=== PATIENT | male | born 1955 | race Caucasian/White ===

== ENCOUNTER 2017-09-07 23:51 | Observation (INO) ==
--- NOTE | 2017-09-08 00:07 | Emergency Department Note ---
Disposition Clinical Impression: ACS (acute coronary syndrome) Chest pain Qualifiers: Chest pain type: unspecified Qualified Code(s): R07.9 - Chest pain, unspecified Disposition: Admitted As Inpatient Condition: Fair Time of Disposition: 03:12 Chest Pain HPI - General Chief Complaint: ED Chest Pain Stated Complaint: "Chest Pain" Time Seen by Provider: 09/07/17 23:54 Source: patient Mode of arrival: ambulatory Limitations: no limitations Vital Signs Reviewed: Yes Nursing Notes Reviewed: Yes - History of Present Illness HPI Narrative: 61-year-old male history of CAD status post stents 3, hypertension, hyperlipidemia, diabetes, COPD. presents with chest pain for last 6-8 hours today, he says his left chest, 12 3 out of 10 now going to his left arm, and his neck. Patient states so should with shortness of breath, does not quite feel like his last heart attack. Feels somewhat close patient states that he has had a come in for evaluation. He denies any recent fever chills or productive cough, denies history of DVT or PE, malignancy, recent travel, prolonged recumbency. Pt complaint: chest pain Onset (ago): hour(s) Duration: intermittent Pain Location: left chest Severity: moderate Severity scale (1-10): 4 Quality: aching Improves with: nothing Worsens with: nothing Associated symptoms: Reports: nausea, dyspnea Treatments prior to arrival chest pain: aspirin - Related Data Home Medications Medication Instructions Recorded Confirmed Aspirin Enteric Coated [Aspirin EC] 81 mg PO DAILY #0 12/06/14 01/25/17 Atorvastatin Calcium [Lipitor] 80 mg PO QPM #0 12/06/14 01/25/17 Clopidogrel [Plavix] 75 mg PO DAILY #0 12/06/14 01/25/17 Cyclobenzaprine [Flexeril] 10 mg PO TID #0 12/06/14 01/25/17 Ezetimibe [Zetia] 10 mg PO DAILY #0 12/06/14 01/25/17 Furosemide [Lasix] 20 mg PO DAILY #0 12/06/14 01/25/17 Glimepiride [Amaryl] 8 mg PO DAILY #0 12/06/14 01/25/17 Lisinopril [Zestril] 5 mg PO DAILY #0 12/06/14 01/25/17 Metoprolol [Lopressor] 75 mg PO BID #0 12/06/14 01/25/17 Omeprazole [PriLOSEC] 40 mg PO QPM #0 12/06/14 01/25/17 OxyCODONE/APAP 10325 [Percocet 2 each PO TID #0 12/06/14 01/25/17 10325] Pioglitazone [Actos] 45 mg PO QPM #0 12/06/14 01/25/17 Zolpidem Tartrate [Ambien Cr] 12.5 mg PO HS #0 12/06/14 01/25/17 metFORMIN [Glucophage] 1,000 mg PO BID #0 12/06/14 01/25/17 Albuterol Neb [Proventil Neb] 2.5 mg IH Q4HR PRN 10/15/15 01/25/17 Nitroglycerin [Nitrostat] 0.4 mg SL Q5M PRN 10/15/15 01/25/17 Tiotropium [Spiriva] 18 mcg IH 0700 10/15/15 01/25/17 Becaplermin [Regranex] 1 appl TP DAILY 04/27/16 04/27/16 Gabapentin [Neurontin] 300 mg PO TID 01/25/17 01/25/17 Meclizine [Antivert] 12.5 mg PO TID 01/25/17 01/25/17 Allergies Allergy/AdvReac Type Severity Reaction Status Date / Time bupropion [From Wellbutrin] Allergy See Verified 09/07/17 23:54 Comments meloxicam Allergy Rash Verified 09/07/17 23:54 acetaminophen [From Vicodin] AdvReac Nausea Verified 09/07/17 23:54 hydrocodone [From Vicodin] AdvReac Nausea Verified 09/07/17 23:54 sitagliptin [From Januvia] AdvReac Gastrointestinal Verified 09/07/17 23:54 Upset All systems ED: reviewed and negative except as stated. Review of Systems: As Per HPI Constitutional: Denies: fever, chills Eyes: Denies: eye pain ENT ED: Denies: ear pain Cardiovascular: Reports: as per HPI, chest pain Respiratory: Reports: as per HPI, cough, dyspnea Gastrointestinal: Denies: abdominal pain, nausea Genitourinary: Denies: urgency, dysuria Musculoskeletal: Denies: back pain Integumentary: Denies: rash Neurological: Denies: headache Chest Pain PMH - Past Medical History Medical history: Reports: COPD, diabetes, GERD, hyperlipidemia, hypertension, myocardial infarction, other Surgical history: Reports: angioplasty/stent, cholecystectomy, orthopedic, other , other Psychiatric history: Reports: depression Prior Cardiac Testing/Procedures: Stress Test, Stenting - Social History Smoking Status: Former smoker Alcohol use: Reports: none Drug use: Reports: none Physical Exam Constitutional: NAD, vital signs reviewed and wnl Eyes: PERRLA, sclera anicteric ENT & Mouth: MMM Neck: normal inspection, neck is supple Resp: CTA bilaterally, no resp distress CV: RRR, no m/g/r GI: normal inspection, soft, no guarding or rigidity Neuro: A&O3, CNII-XII grossly intact, [place] Skin: on limited exam, skin intact with no rashes or lesions Course Course Narrative: 61-year-old male with chest pain arrest, concerning given that he has previous stents, given a nitroglycerin trial, aspirin as he only took a baby aspirin today. Plan is for likely chest pain admission, CBC, BMP troponin,'s EKG was reviewed and showed no acute changes. - Reevaluation(s) Reevaluation #1: Besides the mild head hypotension, with nitroglycerin, chest pain is currently gone, he is admitted to hospitalist leave and a liter fluid for hypotenson. Hospitalist Dr Mendoza accepting Time: 03:12 Vital Signs Temperature 97.5 F L 09/07/17 23:52 Pulse Rate 96 09/07/17 23:52 Respiratory Rate 18 09/07/17 23:52 Blood Pressure 154/84 09/07/17 23:52 O2 Sat by Pulse Oximetry 99 09/07/17 23:52 Temperature 97.5 F L 09/08/17 00:06 Pulse Rate 105 09/08/17 01:53 Respiratory Rate 16 09/08/17 01:53 Blood Pressure 86/63 09/08/17 01:53 O2 Sat by Pulse Oximetry 99 09/08/17 01:53 Oxygen Delivery Oxygen Delivery Room Air Chest Pain - Differential Diagnosis Likely: fracture of rib, unstable angina pectoris, atypical chest pain, st elevation myocardial infraction, costalchondritis, chest pain - Medical Records Medical records reviewed: Yes I reviewed the patient's medical records. - Lab Data Lab results reviewed: Yes I reviewed the patient's lab results. Result diagrams: 09/08/17 00:16 09/08/17 00:16 Lab Results 09/08/17 09/08/17 Range/Units 00:16 00:16 WBC 7.8 (4.3-11.1) K/mcL RBC 4.91 (4.19-5.50) M/mcL Hgb 15.4 (12.9-16.9) g/dL Hct 46.9 (37.5-50.1) % MCV 95.5 (83.0-100.0) fL MCH 31.4 (28.0-33.3) pg MCHC 32.8 (31.6-35.5) g/dL RDW 14.1 (11.5-14.5) % Plt Count 170 (140-400) K/mcL MPV 11.4 (9.4-12.4) fL Immature Gran % 0.3 (0-4) % Seg Neutrophils % 70.8 % Lymphocytes % 17.7 % Monocytes % 6.8 % Eosinophils % 3.3 % Basophils % 1.1 % Neutrophils # 5.6 (1.6-8.9) K/mcL Lymphocytes # 1.4 (0.6-4.6) K/mcL Monocytes # 0.5 (0.0-1.3) K/mcL Eosinophils # 0.3 (0.0-0.6) K/mcL Basophils # 0.1 (0.0-0.2) K/mcL Sodium 136 (136-145) mEq/L Potassium 4.1 (3.5-5.1) mEq/L Chloride 100 (98-107) mEq/L Carbon Dioxide 25 (23-29) mEq/L BUN 22 (8-23) mg/dL Creatinine 0.95 (0.70-1.30) mg/dL Est GFR ( Amer) > 60 (> 60) Est GFR (Non-Af Amer) > 60 (> 60) BUN/Creatinine Ratio 23 (6-26) Glucose 220 H (70-105) mg/dL Calculated Osmolality 292 (280-300) Calcium 10.0 (8.6-10.3) mg/dL Troponin I < 0.03 (< 0.04) ng/mL - Radiology Data Radiology results reviewed: Yes I reviewed the patient's radiology results. Chest X-Ray 09/08/17 23:57 IMPRESSION: No acute process. D/ / Terry Pastrana MD / Terry Pastrana MD Interpreting Provider: Terry Pastrana MD - EKG Data EKG attestation: Yes I reviewed and interpreted this EKG. EKG shows normal: sinus rhythm Rate: normal Rhythm: NSR (98 bpm MS 143 QRS [address] segment elevations or depressions Q waves in leads 3, frequent SVC's), PVC's Heart Score - Score History: Moderately Suspicious EKG: Non Specific repolarisation Disturbance Age: 45-65 Risk Factors: Equal/Greater than 3 risk factor or history of atherosclerotic disease Troponin: Less than normal limit HEART Score Total: 5
[2017-09-08] MEDS ORDERED: Aspirin 81 MG TAB.CHEW PO STA (00:27)
--- NOTE | 2017-09-08 00:27 | Emergency Department Note ---
Disposition Clinical Impression: ACS (acute coronary syndrome) Disposition: Still a Patient Forms: ED Satisfaction Letter General Adult HPI - General Chief complaint: ED Chest Pain Stated complaint: "Chest Pain" Time Seen by Provider: 09/07/17 23:54 Source: patient Mode of arrival: ambulatory Limitations: no limitations - History of Present Illness Pain Scale: 4 - Related Data Home Medications Medication Instructions Recorded Confirmed Aspirin Enteric Coated [Aspirin EC] 81 mg PO DAILY #0 12/06/14 01/25/17 Atorvastatin Calcium [Lipitor] 80 mg PO QPM #0 12/06/14 01/25/17 Clopidogrel [Plavix] 75 mg PO DAILY #0 12/06/14 01/25/17 Cyclobenzaprine [Flexeril] 10 mg PO TID #0 12/06/14 01/25/17 Ezetimibe [Zetia] 10 mg PO DAILY #0 12/06/14 01/25/17 Furosemide [Lasix] 20 mg PO DAILY #0 12/06/14 01/25/17 Glimepiride [Amaryl] 8 mg PO DAILY #0 12/06/14 01/25/17 Lisinopril [Zestril] 5 mg PO DAILY #0 12/06/14 01/25/17 Metoprolol [Lopressor] 75 mg PO BID #0 12/06/14 01/25/17 Omeprazole [PriLOSEC] 40 mg PO QPM #0 12/06/14 01/25/17 OxyCODONE/APAP 10/325 [Percocet 2 each PO TID #0 12/06/14 01/25/17 10/325] Pioglitazone [Actos] 45 mg PO QPM #0 12/06/14 01/25/17 Zolpidem Tartrate [Ambien Cr] 12.5 mg PO HS #0 12/06/14 01/25/17 metFORMIN [Glucophage] 1,000 mg PO BID #0 12/06/14 01/25/17 Albuterol Neb [Proventil Neb] 2.5 mg IH Q4HR PRN 10/15/15 01/25/17 Nitroglycerin [Nitrostat] 0.4 mg SL Q5M PRN 10/15/15 01/25/17 Tiotropium [Spiriva] 18 mcg IH 0700 10/15/15 01/25/17 Becaplermin [Regranex] 1 appl TP DAILY 04/27/16 04/27/16 Gabapentin [Neurontin] 300 mg PO TID 01/25/17 01/25/17 Meclizine [Antivert] 12.5 mg PO TID 01/25/17 01/25/17 Allergies Allergy/AdvReac Type Severity Reaction Status Date / Time bupropion [From Wellbutrin] Allergy See Verified 09/07/17 23:54 Comments meloxicam Allergy Rash Verified 09/07/17 23:54 acetaminophen [From Vicodin] AdvReac Nausea Verified 09/07/17 23:54 hydrocodone [From Vicodin] AdvReac Nausea Verified 09/07/17 23:54 sitagliptin [From Januvia] AdvReac Gastrointestinal Verified 09/07/17 23:54 Upset Past Medical History - Past Medical History Medical history: Reports: COPD, diabetes, GERD, hyperlipidemia, hypertension, myocardial infarction, other Surgical history: Reports: angioplasty/stent, cholecystectomy, orthopedic, other , other Psychiatric history: Reports: depression - Social History Smoking Status: Former smoker Smokeless Tobacco Status: No Alcohol use: Reports: none Drug use: Reports: none Physical Exam - General Limitations: no limitations General appearance: alert Course - Reevaluation(s) Reevaluation #1: Attestation note I examined this patient and my medical decision-making was reviewed with the emergency medicine resident. I agree with the documented findings, disposition and treatment plan as described except to the extent set forth below. Patient seen with emergency medicine resident Lazaro Bateman, Please see a copy of his note for details of the H&P, ED evaluation, management and disposition. I have independently evaluated the patient and confirmed appropriate portions of the history and physical exam. Briefly: 61-year-old male presents with chest pain by EMS. Patient's history 3 prior stents. Heart scores 5. EKG nonspecific ST-T changes. Patient getting nitroglycerin. Patient right aspirin at home. Admission disposition pending. Provided 30 minutes of critical care service this patient Time: 00:25 Vital Signs Temperature 97.5 F L 09/07/17 23:52 Pulse Rate 96 09/07/17 23:52 Respiratory Rate 18 09/07/17 23:52 Blood Pressure 154/84 09/07/17 23:52 O2 Sat by Pulse Oximetry 99 09/07/17 23:52 Temperature 97.5 F L 09/08/17 00:06 Pulse Rate 96 09/08/17 00:06 Respiratory Rate 18 09/08/17 00:06 Blood Pressure 154/84 09/08/17 00:06 O2 Sat by Pulse Oximetry 99 09/08/17 00:06 Oxygen Delivery Oxygen Delivery Room Air
[2017-09-08] MEDS ORDERED: Nitroglycerin 0.4 MG TAB.SUBL SL ONE (00:29)
[2017-09-08 00:30] LABS: Basophils # 0.1 K/mcL (0.0-0.2); Basophils % 1.1 %; Eosinophils # 0.3 K/mcL (0.0-0.6); Eosinophils % 3.3 %; Hematocrit 46.9 % (37.5-50.1); Hemoglobin 15.4 g/dL (12.9-16.9); Immature Granulocytes % 0.3 % (0-4); Lymphocytes # 1.4 K/mcL (0.6-4.6); Lymphocytes % 17.7 %; Mean Corpuscular HGB Conc 32.8 g/dL (31.6-35.5); Mean Corpuscular Hemoglobin 31.4 pg (28.0-33.3); Mean Corpuscular Volume 95.5 fL (83.0-100.0); Mean Platelet Volume 11.4 fL (9.4-12.4); Monocytes # 0.5 K/mcL (0.0-1.3); Monocytes % 6.8 %; Neutrophils # 5.6 K/mcL (1.6-8.9); Platelet Count 170 K/mcL (140-400); Red Blood Count 4.91 M/mcL (4.19-5.50); Red Cell Distribution Width 14.1 % (11.5-14.5); Segmented Neutrophils % 70.8 %
[2017-09-08 00:48] LABS: BUN/Creatinine Ratio 23 (6-26); Blood Urea Nitrogen 22 mg/dL (8-23); Carbon Dioxide 25 mEq/L (23-29); Chloride 100 mEq/L (98-107); Glucose 220 mg/dL (70-105); Osmolality,Calculated 292 (280-300); Potassium 4.1 mEq/L (3.5-5.1); Sodium 136 mEq/L (136-145); eGFR For African Americans > 60 (> 60); eGFR For Non-African Americans > 60 (> 60)
[2017-09-08 00:49] LABS: Troponin I < 0.03 ng/mL (< 0.04)
[2017-09-08] MEDS ORDERED: 0.9 % Sodium Chloride 1,000 ML IVC ONE (01:55)
[2017-09-08] MEDS ORDERED: 0.9 % Sodium Chloride 1,000 ML ONE (01:56)
[2017-09-08] MEDS ORDERED: Naloxone 0.4 MG/ML INJ IVP PRN (04:46)
--- NOTE | 2017-09-08 04:46 | Internal Med History&Physical ---
<Daisy Harrison - Last Filed: 09/08/17 06:39> Date of Encounter: 09/08/17 Time of Encounter: 04:45 Internal Medicine - H&P: HPI Chief complaint: CP Admitted From: Home Plans for Post Hospital Care: Home History of present illness: Mr. Ledezma is a 61 year old male pmh of CAD status post stents 4-5, hypertension, hyperlipidemia, diabetes, and COPD who presented for chest pain. Chest pain described as heaviness being on the left side of his chest and is radiating to his left arm and neck. Pain did not change with position or breathing. Admits to associated diaphoresis but no nausea and shortness of breath. Patient states that this afternoon around 3:57 PM he woke up with chest pain but thought it was a portable muscle, back to sleep. Patient went to work and chest pain continued to worsen as time progressed. He did not notice it being worse with exertion though. Patient taken baby aspirin before coming to the ED. Upon arrival to the ED, patient was tachycardic. Labs showed a negative troponin. EKG shows normal sinus rhythm with a HR 98, no ST changes. Chest x- ray showed no acute process. Patient is given aspirin, nitroglycerin and 1 L bolus. Patient's chest pain was not alleviated by nitroglycerin. Last cardiology visit was years ago with Dominguez Farnsworth. Cardiac work-up: Last echo 11/2014: EF 60, hypokinesis of the basal inferior wall, moderate left ventricular diastolic dysfunction. LHC from 08/29/12 showed 100% occluded proximal RCA with L-R collaterals. There was 25% mid-LAD stenosis and 20% mid-LCx stenosis. Prior stents in the LCx were patent. Past Med Surg Social Fam HX - Past Medical History Medical history: COPD, diabetes, GERD, hyperlipidemia, hypertension, myocardial infarction, other Additional medical history: cardiac catheterization with stents, Psychiatric history: depression - Past Surgical History Surgical History: angioplasty/stent, cholecystectomy, orthopedic, other, other Additional surgical history: colonscopy,rt ankle - Social History Smoking Status: Former smoker Smokeless Tobacco Status: No Alcohol use: none Drug use: none - Family History Father Living Status: Hx Family Cancer: Yes Mother Adopted: No Family Member Ethnicity: Non- Living Status: Still Living Hx Family Cardiac Disorders: Yes Hx Family Respiratory Disorders: No Hx Family Cancer: No Hx Family GI Disorders: No Hx Family Endocrine Disorder: Yes (DM) Hx Family Neuromuscular Disorders: No Hx Family Neurologic Disorders: No Hx Family HEENT Disorders: No Hx Family Autoimmune Disorders: No Internal Medicine - H&P: Meds Aspirin Enteric Coated [Aspirin EC] 81 mg PO DAILY #0 12/06/14 [History] Atorvastatin Calcium [Lipitor] 80 mg PO QPM #0 12/06/14 [History] Clopidogrel [Plavix] 75 mg PO DAILY #0 12/06/14 [History] Cyclobenzaprine [Flexeril] 10 mg PO TID PRN #0 12/06/14 [History] Ezetimibe [Zetia] 10 mg PO DAILY #0 12/06/14 [History] Furosemide [Lasix] 20 mg PO DAILY #0 12/06/14 [History] Glimepiride [Amaryl] 8 mg PO DAILY #0 12/06/14 [History] Lisinopril [Zestril] 5 mg PO DAILY #0 12/06/14 [History] Metoprolol [Lopressor] 75 mg PO BID #0 12/06/14 [History] Omeprazole [PriLOSEC] 40 mg PO QAM #0 12/06/14 [History] Pioglitazone [Actos] 45 mg PO QPM #0 12/06/14 [History] Zolpidem Tartrate [Ambien Cr] 12.5 mg PO HS #0 12/06/14 [History] metFORMIN [Glucophage] 1,000 mg PO BID #0 12/06/14 [History] Nitroglycerin [Nitrostat] 0.4 mg SL Q5M PRN 10/15/15 [History] Gabapentin [Neurontin] 300 mg PO TID 01/25/17 [History] Meclizine [Antivert] 12.5 mg PO TID PRN 01/25/17 [History] 3 Allergy/AdvReac Type Severity Reaction Status Date / Time bupropion [From Wellbutrin] Allergy See Verified 09/07/17 23:54 Comments meloxicam Allergy Rash Verified 09/07/17 23:54 acetaminophen [From Vicodin] AdvReac Nausea Verified 09/07/17 23:54 hydrocodone [From Vicodin] AdvReac Nausea Verified 09/07/17 23:54 sitagliptin [From Januvia] AdvReac Gastrointestinal Verified 09/07/17 23:54 Upset All Systems PM: A 10-system review of systems was performed and is negative for pertinent findings except as documented above in the HPI. - Constitutional Vitals: Temp Pulse Resp BP Pulse Ox 97.6 F 49 15 134/83 98 09/08/17 04:15 09/08/17 04:15 09/08/17 04:15 09/08/17 04:15 09/08/17 04:15 Exam: Constitutional: Alert, in no acute distress , obese Head: Normocephalic, atraumatic Heart: Normal, regular rate and rhythm, no murmurs Lungs: Clear to auscultation, no wheezes, rales, or rhonchi Abdomen: Soft, nondistended, nontender, bowel sounds present and normal, no guarding or rigidity. Extremities: No edema, No clubbing, radial pulse +2/4, capillary refill <2sec. Skin: multiple hypomelanotic lesions on arms and back of neck/upper back, Skin warm and dry, no jaundice, Neurologic: Cranial nerves II through XII grossly intact, Psych: Cooperative with exam, good eye contact, cognitive function intact, speech clear, thought process logical, and goal directed Internal Med - H&P Results - Labs CBC & Chem 7: 09/08/17 00:16 09/08/17 00:16 - Impressions ITS Impressions Chest X-Ray 09/08/17 23:57 IMPRESSION: No acute process. D/ / Terry Pastrana MD / Terry Pastrana MD Interpreting Provider: Terry Pastrana MD - Assessment and plan (1) Chest pain Current Visit: Yes Status: Acute Assessment and plan: Typical chest pain. No changes on EKG. Tropnin negative initially. Most recent echo 2014. Plan: - continue BB, ASA, Plavix, and Statin - trend troponins x3 - Echo pending - cardiac monitoring Qualifiers: Chest pain type: unspecified Qualified Code(s): R07.9 - Chest pain, unspecified (2) Diabetes mellitus type 2 in obese Current Visit: No Status: Chronic Assessment and plan: Not insulin dependent. Will hold diabetic medications and place on low sliding scale. (3) CAD (coronary artery disease) Current Visit: No Status: Chronic Assessment and plan: Continue home meds. Qualifiers: [place] vs. transplanted heart: [place] heart Associated angina: with unstable angina Qualified Code(s): I25.110 - Atherosclerotic heart disease of [place] coronary artery with unstable angina pectoris (4) DVT prophylaxis Current Visit: Yes Status: Acute Assessment and plan: Heparin SQ - Time Spent With Patient Total time spent is greater than 50% in coordination of care (as documented) at patient's floor/unit and/or counseling patient: <Marizol Abbasi O - Last Filed: 09/08/17 07:33> Date of Encounter: 09/08/17 Internal Medicine - H&P: HPI History of present illness: Mr. Ledezma is a 61 year old male All Systems PM: A 10-system review of systems was performed and is negative for pertinent findings except as documented above in the HPI. - Constitutional Vitals: Temp Pulse Resp BP Pulse Ox 97.6 F 49 15 134/83 98 09/08/17 04:15 09/08/17 04:15 09/08/17 04:15 09/08/17 04:15 09/08/17 04:15 General appearance: Present: A&O X 3, no acute distress - Head Head exam: Present: atraumatic, normocephalic - Eye Eye exam: Present: PERRL, conjuntiva pink, sclera anicteric Pupils: Present: PERRL - Neck Neck exam general surgery: Present: supple, trachea midline. Absent: lymphadenopathy - Respiratory Respiratory exam: Present: CTAB. Absent: accessory muscle use, rales, rhonchi, wheezes - Cardiovascular Cardiovascular exam: Present: RRR, +S1, +S2. Absent: diastolic murmur, gallop, rubs, systolic murmur - GI/Abdominal GI/Abdominal exam: Present: normal bowel sounds, soft, no peritoneal signs. Absent: distended, tenderness - Extremities Exam Extremities exam: Present: warm, radial pulses palpable and symmetrical. Absent : calf tenderness, cyanotic, pedal edema - Neurological Exam Neurological exam: Present: CN II-XII intact, oriented X3, no focal deficits. Absent: pronater drift, facial droop, speech deficit - Skin Skin exam: Present: dry, intact Internal Med - H&P Results - Labs CBC & Chem 7: 09/08/17 00:16 09/08/17 00:16 Labs: Cardiac Enzymes 09/08/17 Range/Units 06:05 Troponin I < 0.03 (< 0.04) ng/mL - Impressions ITS Impressions Chest X-Ray 09/08/17 23:57 IMPRESSION: No acute process. D/ / Terry Pastrana MD / Terry Pastrana MD Interpreting Provider: Terry Pastrana MD - Attending Attestation I performed a history and physical exam of the patient and discussed his management with the resident. I reviewed the residents note and agree with the documented findings and plan of care. Assessment and plan !. Chest pain. Will cycle troponin. ASA daily and nitro SL prn. Oxygen as needed. If troponin trends up will consult cardiology. - Time Spent With Patient Total time spent is greater than 50% in coordination of care (as documented) at patient's floor/unit and/or counseling patient: 25 - 35 minutes
[2017-09-08] MEDS ORDERED: D5% in Water 1,000 ML IVC PRN (04:54)
[2017-09-08] MEDS ORDERED: Dextrose Gel 15 GM/37.5 ML TUBE PO PRN ×2 (04:54)
[2017-09-08] MEDS ORDERED: *HR* Dextrose 50 % in Water (Syg) 50 ML SYRINGE IVP PRN (04:54)
[2017-09-08] MEDS ORDERED: *HR* Heparin 5,000 UNIT/ML VIAL SQ SCH (06:00)
[2017-09-08 06:56] LABS: Magnesium 1.8 mg/dL (1.6-2.6)
[2017-09-08 06:58] LABS: Troponin I < 0.03 ng/mL (< 0.04)
[2017-09-08] MEDS: Insulin LISPRO 300 UNITS/3 ML VIAL SQ SCH ×2 (07:56→12:19)
[2017-09-08] MEDS ORDERED: Furosemide 20 MG TABLET PO SCH (09:00)
[2017-09-08] MEDS ORDERED: (Ezetimibe [Zetia] 10 MG) PO SCH (09:00)
[2017-09-08] MEDS ORDERED: Aspirin Enteric Coated 81 MG Tablet PO SCH (09:00)
[2017-09-08] MEDS: Gabapentin 300 MG CAPSULE PO SCH ×2 (09:26→14:57)
[2017-09-08 11:16] VITALS: BP 128/81
--- NOTE | 2017-09-08 14:56 | Discharge Summary ---
Orders not resulted at time of discharge: Pending orders 09/08/17 18:00 Troponin I Q6H 09/09/17 04:00 Basic Metabolic Panel AM 0400 Magnesium AM 0400 Date of Encounter: 09/08/17 Time of Encounter: 14:59 - Discharge Diagnosis (1) Chest pain Priority: Primary Status: Acute Qualifiers: Chest pain type: unspecified Qualified Code(s): R07.9 - Chest pain, unspecified (2) CAD (coronary artery disease) Priority: Primary Status: Chronic Qualifiers: [place] vs. transplanted heart: [place] heart Associated angina: with unstable angina Qualified Code(s): I25.110 - Atherosclerotic heart disease of [place] coronary artery with unstable angina pectoris (3) Diabetes mellitus type 2 in obese Priority: Secondary Status: Chronic Hospital course: Mr. Ledezma is a 61 year old male with [facility] CAD status post stents 4-5, hypertension, hyperlipidemia, diabetes, and COPD who presented to [facility] on 2017 with complaints of chest pain. He is placed in observation status for further workup and treatment. ACS was ruled out with negative serial troponins , EKG without acute ST changes. CXR nonacute. He was given ASA, sublingual nitroglycerin in the ED with improvement in chest pain. Discussed inpatient cardiology consultation versus medication management and patient preferred medical management at this time. Agreeable to trial isosorbide with outpatient follow-up with primary athletic field custodian. Denied chest pain, no shortness of breath at time of discharge. He was advised to continue all cardiac medications with the addition of isosorbide and return to ER if chest pain or SOB recurs. He verbalizes understanding. Otherwise he will follow-up with outpatient athletic field custodian Discharge discussed with: patient (Seen and examined at bedside. Patient is new to me, information obtained from chart review and patient report. Sitting up in chair at bedside. Says he feels back to baseline and would like to discharge home today if possible. No further chest pain or shortness of breath. Discussed inpatient cardiology consultation with him and he prefers medical management at this time. He was advised return to ER if chest pain or SOB recurs. Verbalized understanding.) - Time Spent with Patient Total time spent providing and/or coordinating discharge services: - Discharge Medications Prescriptions: Isosorbide MONOnitrate (24 HR) [Imdur] 30 mg PO DAILY #30 tab.er.24h Home Medications: Aspirin Enteric Coated [Aspirin EC] 81 mg PO DAILY #0 12/06/14 [History] Atorvastatin Calcium [Lipitor] 80 mg PO QPM #0 12/06/14 [History] Ezetimibe [Zetia] 10 mg PO DAILY #0 12/06/14 [History] Furosemide [Lasix] 20 mg PO DAILY #0 12/06/14 [History] Lisinopril [Zestril] 5 mg PO DAILY #0 12/06/14 [History] Metoprolol [Lopressor] 75 mg PO BID #0 12/06/14 [History] Omeprazole [PriLOSEC] 40 mg PO QAM #0 12/06/14 [History] Zolpidem Tartrate [Ambien Cr] 12.5 mg PO HS #0 12/06/14 [History] metFORMIN [Glucophage] 1,000 mg PO BID #0 12/06/14 [History] Nitroglycerin [Nitrostat] 0.4 mg SL Q5M PRN 10/15/15 [History] Gabapentin [Neurontin] 300 mg PO TID 01/25/17 [History] Meclizine [Antivert] 12.5 mg PO TID PRN 01/25/17 [History] Alendronate Sodium [Fosamax] 70 mg PO QWEEK 09/08/17 [History] Clopidogrel [Plavix] 75 mg PO DAILY 09/08/17 [History] Glimepiride [Amaryl] 8 mg PO DAILY 09/08/17 [History] Isosorbide MONOnitrate (24 HR) [Imdur] 30 mg PO DAILY #30 tab.er.24h 09/08/17 [ Rx] Pioglitazone HCl [Actos] 45 mg PO DAILY 09/08/17 [History] Allergies/Adverse Reactions: 3 Allergy/AdvReac Type Severity Reaction Status Date / Time bupropion [From Wellbutrin] Allergy See Verified 09/07/17 23:54 Comments meloxicam Allergy Rash Verified 09/07/17 23:54 acetaminophen [From Vicodin] AdvReac Nausea Verified 09/07/17 23:54 hydrocodone [From Vicodin] AdvReac Nausea Verified 09/07/17 23:54 sitagliptin [From Januvia] AdvReac Gastrointestinal Verified 06/14/18 23:54 Upset Date of admission: 09/08/17 02:11 Primary care physician: Nicole Amaya CNP Discharging clinician: Alyson Levin Anticipated date of discharge: 09/08/17 - Constitutional Vitals: Temp Pulse Resp BP Pulse Ox 97.4 F L 80 16 128/81 94 09/08/17 11:14 09/08/17 11:14 09/08/17 11:14 09/08/17 11:14 09/08/17 11:14 General appearance: Present: A&O X 3, no acute distress - Head Head exam: Present: atraumatic, normocephalic - Eye Eye exam: Present: PERRL, conjuntiva pink, sclera anicteric Pupils: Present: PERRL - Neck Neck exam general surgery: Present: supple, trachea midline. Absent: lymphadenopathy - Respiratory Respiratory exam: Present: CTAB. Absent: accessory muscle use, rales, rhonchi, wheezes - Cardiovascular Cardiovascular exam: Present: RRR, +S1, +S2. Absent: diastolic murmur, gallop, rubs, systolic murmur - GI/Abdominal GI/Abdominal exam: Present: normal bowel sounds, soft, no peritoneal signs. Absent: distended, tenderness - Extremities Exam Extremities exam: Present: warm, radial pulses palpable and symmetrical. Absent : calf tenderness, cyanotic, pedal edema - Neurological Exam Neurological exam: Present: CN II-XII intact, oriented X3, no focal deficits. Absent: pronater drift, facial droop, speech deficit - Skin Skin exam: Present: dry, intact - Patient Status Disposition: Home, Self-Care Condition: Good Functional capacity at discharge: independent ambulation Overall status at discharge: patient is back to baseline - Discharge Instructions Instructions: Isosorbide Mononitrate (By mouth), Chest Pain (DC) Follow Up With: Nicole Amaya CNP [Primary Care Provider] - 09/12/17 10:30 am Phong Farnsworth CNP [Advanced Practice Nurse] - (Please call for follow-up appointment if you have not heard from office within 2-3 weeks) - Diet and Activity Activity: increase activity as tolerated Diet: diabetic diet, low fat, low cholesterol, low salt diet
[2017-09-08] MEDS ORDERED: Insulin LISPRO 300 UNITS/3 ML VIAL SQ SCH (21:00)
--- NOTE | 2017-09-11 06:44 | Electrocardiograph Report ---
[address] [address] Test Date: 2017-09-07 Pat Name: Nathan Ledezma Department: 103 Room: 3B54 Gender: M Nursing Service Director: HAILEY : 1955 Requested By: Lazaro Bateman Order Number: [id number] Reading MD: Ranjith Leggett Measurements Intervals [place] Rate: 98 P: 35 DC: 143 QRS: 39 QRSD: 80 T: 18 QT: 330 QTc: 386 Interpretive Statements SINUS RHYTHM WITH FREQUENT SUPRAVENTRICULAR PREMATURE COMPLEXES BASELINE ARTIFACT Electronically Signed On 09-11-2017 6:43:03 EDT by Ranjith Leggett
== END 2017-09-08 15:49 | disposition home or self-care (01) ==
LOC: 3BNU 23:51 → EMEROO 23:51 → 3BNU 09-08 03:23
PROVIDERS: ADMIT Internal Medicine; ATTEND Internal Medicine

== ENCOUNTER 2019-01-20 14:33 | Observation (INO) ==
[2019-01-20] MEDS ORDERED: Aspirin 81 MG TAB.CHEW PO ONE (14:46)
[2019-01-20] MEDS: Nitroglycerin 0.4 MG TAB.SUBL SL PRN ×3 (14:59→15:25)
[2019-01-20 15:21] LABS: Basophils # 0.1 K/mcL (0.0-0.2); Basophils % 1.7 %; Eosinophils # 0.4 K/mcL (0.0-0.6); Eosinophils % 4.5 %; Hematocrit 47.8 % (37.5-50.1); Hemoglobin 15.7 g/dL (12.9-16.9); Immature Granulocytes % 0.2 % (0-4); Lymphocytes # 1.6 K/mcL (0.6-4.6); Lymphocytes % 19.1 %; Mean Corpuscular HGB Conc 32.8 g/dL (31.6-35.5); Mean Corpuscular Hemoglobin 30.8 pg (28.0-33.3); Mean Corpuscular Volume 93.7 fL (83.0-100.0); Monocytes # 0.6 K/mcL (0.0-1.3); Monocytes % 7.7 %; Neutrophils # 5.5 K/mcL (1.6-8.9); Platelet Count 237 K/mcL (140-400); Red Cell Distribution Width 14.5 % (11.5-14.5); Segmented Neutrophils % 66.8 %; White Blood Count 8.3 K/mcL (4.3-11.1)
[2019-01-20 15:28] LABS: Prothrombin Time 11.4 Seconds (9.4-12.1)
[2019-01-20 15:31] LABS: Activated Partial Thrombo Time 38.6 Seconds (26.0-36.0)
[2019-01-20 15:45] LABS: BUN/Creatinine Ratio 17 (6-26); Blood Urea Nitrogen 16 mg/dL (8-23); Calcium 9.9 mg/dL (8.6-10.3); Carbon Dioxide 28 mEq/L (23-29); Chloride 95 mEq/L (98-107); Glucose 264 mg/dL (70-105); Osmolality,Calculated 290 (280-300); Potassium 4.5 mEq/L (3.5-5.1); Sodium 135 mEq/L (136-145); eGFR For African Americans > 60 (> 60); eGFR For Non-African Americans > 60 (> 60)
[2019-01-20 15:46] LABS: Troponin I < 0.03 ng/mL (< 0.04)
[2019-01-20] MEDS ORDERED: Naloxone 0.4 MG/ML INJ IVP PRN (17:00)
[2019-01-20] MEDS ORDERED: *HR* Dextrose 50 % in Water (Syg) 50 ML SYRINGE IVP PRN (17:30)
[2019-01-20] MEDS ORDERED: D5% in Water 1,000 ML IVC PRN (17:30)
[2019-01-20] MEDS ORDERED: Dextrose Gel 15 GM/37.5 ML TUBE PO PRN ×2 (17:30)
[2019-01-20] MEDS ORDERED: Melatonin 3 MG TABLET PO PRN (23:45)
[2019-01-21] MEDS ORDERED: Regadenoson 0.4 MG/5 ML SYRINGE IVP ONE (06:28)
[2019-01-21] MEDS ORDERED: Furosemide 20 MG TABLET PO SCH (09:00)
[2019-01-21] MEDS: Insulin LISPRO 300 UNITS/3 ML VIAL SQ SCH ×2 (09:27→11:29)
[2019-01-21 11:27] VITALS: BP 101/64
[2019-01-22] MEDS ORDERED: Isosorbide MONOnitrate (24 HR) 30 MG TAB.ER.24H PO SCH (09:00)
== END 2019-01-21 14:10 | disposition home or self-care (01) ==
LOC: SUATTDRO → 3BNU 14:33 → EMEROOARM 14:33 → SUATTDRO 17:11 → 3BNU 17:42
PROVIDERS: ADMIT Student in an Organized Health Care Education/Training Program; ATTEND Internal Medicine

== ENCOUNTER 2020-01-01 12:14 | Inpatient (IN) ==
[~2020-01-01 12:14] MED LIST: Povidone-Iodine 45 ML, Sodium Chloride IRRigation 1,000 ML IR ONE
[2020-01-01] MEDS ORDERED: CeFAZolin Syr 2,000MG/20 ML 2,000 MG/20 ML SYRINGE IVPB ONE (12:43)
[2020-01-01] MEDS ORDERED: Ringers Solution, Lactated 1,000 ML IVC SCH ×2 (12:45→16:14)
[2020-01-01] MEDS ORDERED: *HR* Metoprolol 5 MG/5 ML VIAL IVP PRN (13:06)
[2020-01-01] MEDS ORDERED: *HR* Promethazine 25 MG/ML VIAL IVP PRN (13:06)
[2020-01-01] MEDS ORDERED: *HR* OxyCODONE Immed Rel 5 MG TABLET PO PRN ×2 (13:06→16:14)
[2020-01-01] MEDS ORDERED: Acetaminophen IV 1,000 MG/100 ML INFUS..BTL IVPB ONE (13:06)
[2020-01-01] MEDS ORDERED: Ondansetron 4 MG/2 ML VIAL IVP PRN ×2 (13:06→16:14)
[2020-01-01] MEDS ORDERED: Famotidine 20 MG/2 ML VIAL IVP ONE (13:06)
[2020-01-01] MEDS ORDERED: *HR* HYDROmorphone PF 0.5 MG/0.5 ML SYRINGE IVP PRN (13:06)
[2020-01-01] MEDS ORDERED: Ethanol\\Acetic Acid\\Na Ace\\Ben 1,000 ML IRRIG.SOLN IR ONE (13:11)
[2020-01-01] MEDS ORDERED: Vancomycin 1,000 MG VIAL ONE (13:12)
[2020-01-01] MEDS ORDERED: Ropivacaine/PF 0.5% 30 ML VIAL ONE (13:32)
[2020-01-01] MEDS ORDERED: *HR* Midazolam HCl 2 MG/2 ML VIAL ONE (13:32)
[2020-01-01] MEDS ORDERED: *HR* Propofol 200 MG/20 ML VIAL IVP ONE (13:34)
[2020-01-01] MEDS ORDERED: Lidocaine -MPF 2% 2 ML VIAL ONE (13:36)
[2020-01-01] MEDS ORDERED: Dexamethasone 4 MG/ML VIAL ONE (13:36)
[2020-01-01] MEDS ORDERED: Lidocaine HCL 4 ML Topical Solution (Laryng-O-Jet Kit Sterile Pak) TP ONE (13:36)
[2020-01-01] MEDS ORDERED: Ondansetron 4 MG/2 ML VIAL ONE (13:36)
[2020-01-01] MEDS ORDERED: *HR* Succinylcholine 200 MG/10 ML VIAL IVP ONE (13:36)
[2020-01-01] MEDS ORDERED: *HR* FentaNYL (PF) 100 MCG/2 ML VIAL ONE (14:46)
[2020-01-01] MEDS ORDERED: Dextrose Gel 15 GM/37.5 ML TUBE PO PRN ×2 (16:14)
[2020-01-01] MEDS ORDERED: *HR* OxyCODONE/APAP 5/325 TABLET PO PRN (16:14)
[2020-01-01] MEDS ORDERED: D5% in Water 1,000 ML IVC PRN (16:14)
[2020-01-01] MEDS ORDERED: Naloxone 0.4 MG/ML INJ IVP PRN (16:14)
[2020-01-01] MEDS ORDERED: *HR* Dextrose 50 % in Water (Vial) 50 ML VIAL IVP PRN (16:14)
[2020-01-01] MEDS ORDERED: Sennosides 8.6 MG TABLET PO PRN (16:14)
[2020-01-01] MEDS ORDERED: MOM Conc 10 ML UD.LIQ PO PRN (16:14)
[2020-01-01] MEDS ORDERED: Insulin LISPRO 300 UNITS/3 ML VIAL SQ SCH ×2 (16:30→21:00)
[2020-01-01 16:31] LABS: Hematocrit 42.1 % (37.5-50.1); Hemoglobin 13.5 g/dL (12.9-16.9)
[2020-01-01] MEDS ORDERED: CeFAZolin 2 GM/120 ML BAG IVPB SCH ×2 (17:10→22:00)
[2020-01-01] MEDS ORDERED: *HR* Enoxaparin 30 MG/0.3 ML SYRINGE SQ SCH ×2 (18:00)
[2020-01-01 18:43] VITALS: BP 136/74
[2020-01-02] MEDS ORDERED: Furosemide 20 MG TABLET PO SCH (09:00)
[2020-01-02] MEDS ORDERED: Dapagliflozin Propanediol [Farxiga] 5 MG PO SCH (09:00)
[2020-01-02] MEDS ORDERED: NON-FORMULARY MEDICATION 1 EACH EACH (Ezetimibe [Zetia] 10 MG) PO SCH (09:00)
[2020-01-06] MEDS ORDERED: Dulaglutide [Trulicity] 0.75 MG SQ SCH (13:10)
== END 2020-01-01 20:10 | disposition home or self-care (01) | DRG 483 ==
LOC: SAMDAY 12:14 → 3NENU 15:59
PROVIDERS: ADMIT Orthopaedic Surgery; ATTEND Orthopaedic Surgery

== ENCOUNTER 2020-07-16 16:05 | Observation (INO) ==
[2020-07-16] MEDS ORDERED: Nitroglycerin 0.4 MG TAB.SUBL SL PRN (16:58)
[2020-07-16] MEDS ORDERED: Aspirin 325 MG TABLET PO ONE (16:58)
[2020-07-16 17:00] LABS: White Blood Count 7.1 K/mcL (4.3-11.1)
[2020-07-16 17:01] LABS: Basophils # 0.1 K/mcL (0.0-0.2); Basophils % 1.7 %; Eosinophils # 0.4 K/mcL (0.0-0.6); Eosinophils % 5.2 %; Hematocrit 42.4 % (37.5-50.1); Hemoglobin 13.4 g/dL (12.9-16.9); Immature Granulocytes % 0.3 % (0-4); Lymphocytes # 1.4 K/mcL (0.6-4.6); Lymphocytes % 19.7 %; Mean Corpuscular HGB Conc 31.6 g/dL (31.6-35.5); Mean Corpuscular Hemoglobin 29.7 pg (28.0-33.3); Mean Platelet Volume 10.2 fL (9.4-12.4); Monocytes # 0.5 K/mcL (0.0-1.3); Monocytes % 7.1 %; Neutrophils # 4.7 K/mcL (1.6-8.9); Platelet Count 213 K/mcL (140-400); Red Blood Count 4.51 M/mcL (4.19-5.50); Red Cell Distribution Width 15.5 % (11.5-14.5)
[2020-07-16 17:26] LABS: BUN/Creatinine Ratio 19 (6-26); Blood Urea Nitrogen 18 mg/dL (8-23); Calcium 9.8 mg/dL (8.6-10.3); Carbon Dioxide 23 mEq/L (23-29); Chloride 101 mEq/L (98-107); Glucose 237 mg/dL (70-105); Osmolality,Calculated 290 (280-300); Potassium 4.1 mEq/L (3.5-5.1); Sodium 135 mEq/L (136-145); eGFR For African Americans > 60 (> 60); eGFR For Non-African Americans > 60 (> 60)
[2020-07-16 17:28] LABS: Troponin I < 0.03 ng/mL (< 0.04)
[2020-07-16] MEDS ORDERED: Ondansetron 4 MG/2 ML VIAL IVP PRN (17:58)
[2020-07-16] MEDS ORDERED: Morphine Sulfate 2 MG/ML SYRINGE IVP PRN (17:58)
[2020-07-16] MEDS ORDERED: *HR* Dextrose 50 % in Water (Vial) 50 ML VIAL IVP PRN (18:01)
[2020-07-16] MEDS ORDERED: D5% in Water 1,000 ML IVC PRN (18:01)
[2020-07-16] MEDS ORDERED: Dextrose Gel 15 GM/37.5 ML TUBE PO PRN ×2 (18:01)
[2020-07-16] MEDS ORDERED: Insulin LISPRO 300 UNITS/3 ML VIAL SUBQ SCH (21:00)
[2020-07-17] MEDS ORDERED: Regadenoson 0.4 MG/5 ML SYRINGE IVP ONE (06:19)
[2020-07-17 07:05] LABS: Basophils # 0.1 K/mcL (0.0-0.2); Basophils % 0.8 %; Eosinophils # 0.4 K/mcL (0.0-0.6); Eosinophils % 5.2 %; Hematocrit 44.9 % (37.5-50.1); Hemoglobin 14.3 g/dL (12.9-16.9); Immature Granulocytes % 0.3 % (0-4); Lymphocytes # 1.3 K/mcL (0.6-4.6); Lymphocytes % 18.4 %; Mean Corpuscular HGB Conc 31.8 g/dL (31.6-35.5); Mean Corpuscular Hemoglobin 30.4 pg (28.0-33.3); Mean Corpuscular Volume 95.5 fL (83.0-100.0); Mean Platelet Volume 10.3 fL (9.4-12.4); Monocytes # 0.5 K/mcL (0.0-1.3); Monocytes % 6.9 %; Platelet Count 181 K/mcL (140-400); Red Cell Distribution Width 15.4 % (11.5-14.5); Segmented Neutrophils % 68.4 %; White Blood Count 7.3 K/mcL (4.3-11.1)
[2020-07-17 07:31] LABS: Alanine Aminotransferase 26 Units/L (7-52); Albumin 4.2 g/dL (3.5-5.7); Albumin/Globulin Ratio 1.4 (1.1-2.2); Alkaline Phosphatase 63 Units/L (34-104); Aspartate Amino Transferase 22 Units/L (13-39); BUN/Creatinine Ratio 20 (6-26); Bilirubin,Total 0.5 mg/dL (0.3-1.0); Blood Urea Nitrogen 15 mg/dL (8-23); Calcium 9.8 mg/dL (8.6-10.3); Carbon Dioxide 26 mEq/L (23-29); Chloride 103 mEq/L (98-107); Globulin 3.1 g/dL (2.4-3.5); Glucose 80 mg/dL (70-105); Magnesium 1.9 mg/dL (1.6-2.6); Osmolality,Calculated 288 (280-300); Sodium 139 mEq/L (136-145); Total Protein 7.3 g/dL (6.4-8.9); Troponin I < 0.03 ng/mL (< 0.04); eGFR For African Americans > 60 (> 60); eGFR For Non-African Americans > 60 (> 60)
[2020-07-17 08:30] LABS: Prothrombin Time 11.8 Seconds (9.4-12.1)
[2020-07-17] MEDS: Insulin LISPRO 300 UNITS/3 ML VIAL SUBQ SCH ×2 (08:31→10:50)
[2020-07-17] MEDS ORDERED: *HR* OxyCODONE/APAP 7.5/325 TABLET PO PRN (08:50)
[2020-07-17] MEDS ORDERED: Furosemide 20 MG TABLET PO SCH (09:00)
[2020-07-17] MEDS ORDERED: Metoprolol XL (24 HR) Succ 50 MG TAB.ER.24H PO SCH (09:00)
[2020-07-17] MEDS ORDERED: (Ezetimibe [Zetia] 10 MG Tablet) PO SCH (09:00)
[2020-07-17] MEDS ORDERED: lisinopriL 5 MG TABLET PO SCH (09:00)
[2020-07-17 09:15] VITALS: TEMP 97.4
[2020-07-17 11:15] VITALS: O2SAT 92
[2020-07-17] MEDS ORDERED: Isosorbide MONOnitrate (24 HR) 30 MG TAB.ER.24H PO SCH (14:30)
[2020-07-17 14:53] VITALS: BP 124/79; PULSE 86
[2020-07-17] MEDS ORDERED: Metoprolol XL (24 HR) Succ 25 MG TAB.ER.24H PO SCH (21:00)
== END 2020-07-17 16:49 | disposition home or self-care (01) ==
LOC: SUATTDRO → 3BNU 16:05 → EMEROOARM 16:05 → SUATTDRO 18:14 → 3BNU 19:34
PROVIDERS: ADMIT Family Medicine; ATTEND Internal Medicine